=== PATIENT | male | born 1955 | race Caucasian/White ===

== ENCOUNTER → 2018-07-08 | Outpatient (CLI) | payer MEDICARE ==
[~2018-07-08] MED LIST: AMLODIPINE BESYL5 M1 PO; AUGMENTIN 875875 MG; AUGMENTIN 875875 MG PO; FLOMAX0.4 MG PO; HYDROCODONE-AP1 EAC6 PO; LEVOTHYROXINE0.05 MG PO; LISINOPRIL20 MG PO; ZOFRAN ODT4 MG PO
[2018-07-08 12:19] LABS: ABSOLUTE BASOPHILS 0.1 thou/uL (0.0-0.2); ABSOLUTE EOSINOPHILS 0.1 thou/uL (0.0-0.7); ABSOLUTE LYMPHOCYTES 1.5 thou/uL (0.8-5.3); ABSOLUTE MONOCYTES 0.7 thou/uL (0.0-1.2); ABSOLUTE NEUTROPHILS 5.4 thou/uL (1.6-8.1); EOSINOPHILS 1.9 %; HEMATOCRIT 30.2 % (42.0-52.0); HEMOGLOBIN 10.3 gm/dL (14.0-18.0); LYMPHOCYTES 19.3 %; MCH 35.2 pg (26.0-34.0); MCV 103.3 fL (80.0-100.0); MONOCYTES 8.7 %; MPV 8.5 fl. (7.2-11.1); NUCLEATED RBCS 0 /100WBC; PLATELET COUNT* 219 thou/uL (150-400); POLYS 69.1 %; RBC 2.93 mil/uL (4.50-6.00); RDW-CV 13.7 % (10.5-14.5); WBC 7.8 thou/uL (4.0-11.0)
[2018-07-08 12:30] LABS: APTT 27.6 Seconds (25.0-31.3); INR 1.2; PROTIME 12.2 Seconds (9.20-11.50)
[2018-07-08 12:33] LABS: ALBUMIN 2.2 g/dL (3.4-5.0); CALCIUM 8.4 mg/dL (8.5-10.1); CREATININE 1.7 mg/dL (0.6-1.3); POTASSIUM 3.9 mmol/L (3.5-5.1); TOTAL BILIRUBIN 1.4 mg/dL (<0.1-1.0)
[2018-07-08 12:55] LABS: % SATURATION 60 % (20-39); IRON 104 ug/dL (50-175)
[2018-07-08 13:50] VITALS: BP 132/74
[2018-07-08 14:56] VITALS: BP 122/70
[2018-07-08 15:05] LABS: CLARITY CLEAR; SOURCE PARACENTESIS; TOTAL VOLUME 2460 ml
[2018-07-08 15:06] LABS: BF RBC 235 /mm3; TOTAL CELL COUNT 275 /mm3
[2018-07-08 15:23] LABS: BF LYMPHOCYTES 45 %; BF MONOCYTES 3 %; BF POLYS 52 %; BF TISSUE 43 /100 WBC
--- NOTE | 2018-07-08 16:02 | NUR ---
ARRIVED PER WHEELCHAIR. TRANSFERES SELF TO RECLINER. WARM BLANKET,PILLOW AND BOX LUNCH PROVIDED FOR COMFORT. IV STARTED WITH EASE. INFUSION COMPLETED AND TOERLATED WELL. DENEIS QUESTIONS OR NEEDS AT DISCHARGE.
[2018-07-09 09:08] LABS: HEPATITIS B SURFACE AG Negative (Negative)
[2018-07-09 10:09] LABS: BODY FLUID PROTEIN 1.6 g/dL (())
[2018-07-09 13:08] LABS: ANA INTERPRETATION Negative (Negative)
[2018-07-11 09:54] LABS: SOURCE ABDOMINAL
== END ==
LOC: M.LAB 05:13 → M.INFUS 05:13 → M.LAB 12:00 → M.ULTRA 13:00
PROVIDERS: Internal Medicine Gastroenterology
DX: K74.60 Unspecified cirrhosis of liver (principal)